=== PATIENT | male | born 1960 | race Caucasian/White ===

== ENCOUNTER → 2018-06-21 07:39 | Outpatient (CLI) | payer OTHER, SELFPAY ==
[2018-06-04 15:49] VITALS: BMI 27.6
--- NOTE | 2018-06-21 07:41 | ECHOD_ITS ---
Reason For Study: CAD/ASHD Procedure This was a 2D Doppler, Color Flow transthoracic echocardiogram. Exam performed in department. Left Ventricle Normal size and thickness. The estimated ejection fraction is 65 %. Normal diastology for age. No regional wall motion abnormalities noted. Right Ventricle Normal size and thickness. Normal systolic function. Atria The left atrium is mildly enlarged. Normal right atrium. Normal atrial septum. Mitral Valve The mitral valve is structurally normal. No prolapse or stenosis seen. Tricuspid Valve Normal tricuspid valve. Trivial tricuspid valve insufficiency. Right ventricular systolic pressure estimated to be 35 mmHg. Aortic Valve Trisinus/trileaflet aortic valve. Normal aortic valve. Pulmonic Valve Normal pulmonic valve. Trivial eccentric pulmonic valve insufficiency. Great Vessels Normal aortic root. Normal arch. Normal inferior vena cava. Inferior vena cava collapse with sniff. Pericardium/Pleural No pericardial effusion. MMode/2D Measurements & Calculations LVIDd: 5.2 cm IVSd: 0.95 cm Ao root diam: 3.6 cm LVIDs: 2.9 cm LVPWd: 1.0 cm RVDd: 3.6 cm FS: 44.4 % LAV(MOD-bp): 76.3 ml LA A4 area: 21.4 cm2 LA dimension(2D): 3.7 cm LAV(MOD-bp) Indexed: 37.8 ml/m2 LAV(MOD-sp2): 72.3 ml LAV(MOD-sp4): 72.4 ml RA A4 area: 15.6 cm2 Time Measurements MV dec time: 0.17 sec Doppler Measurements & Calculations MV E max mike: 69.3 cm/sec Lat Peak E' Mike: 12.4 cm/sec Med Peak E' Mike: 9.7 cm/sec MV A max mike: 45.8 cm/sec E/E' lat: 5.6 E/E' med: 7.2 MV E/A: 1.5 Ao V2 max: 128.3 cm/sec LV V1 max: 109.3 cm/sec PA V2 max: 82.7 cm/sec Ao max P.4 mmHg LV V1 max P.8 mmHg TR max mike: 269.5 cm/sec TR max P.0 mmHg Interpretation Summary The estimated ejection fraction is 65 %. Normal diastology for age. Trivial tricuspid valve insufficiency. Right ventricular systolic pressure estimated to be 35 mmHg. There is no comparison study available. Ordering Physician: Cresencio Amos Referring Physician: Ronald Montgomery Performed By: Sandra Almazan RDCS, RVT
== END ==
PROVIDERS: Family Provider Family Medicine; PCP Family Medicine; Referring Provider Internal Medicine Cardiovascular Disease; Visit Provider Internal Medicine Cardiovascular Disease
DX: E78.5 Hyperlipidemia, unspecified (principal); I25.10 Atherosclerotic heart disease of native coronary artery without angina pectoris; Z82.49 Family history of ischemic heart disease and other diseases of the circulatory system; R06.02 Shortness of breath
CPT/HCPCS: 93306

== ENCOUNTER → 2018-07-04 09:15 | Outpatient (CLI) | payer OTHER, SELFPAY ==
[2018-06-04 15:49] VITALS: BMI 27.6
--- NOTE | 2018-07-04 09:17 | STE_ITS ---
Reason For Study: FAMILY HX Stress Results Protocol: Stress Echocardiogram Maximum Predicted HR: 160 bpm Target HR: 136 bpm % Maximum Predicted HR: 86 % DurationHeart Rate Stage (mm:ss) (bpm) BP Comment BASELINE 56 150/80 BARRON PROTOCOL- STAGE 1 3:00 93 148/76NO SX BARRON PROTOCOL- STAGE 2 3:00 116 160/82NO SX, ST DEPRESSION, T WAVE INVERSION BARRON PROTOCOL- STAGE 3 3:00 137 164/84NO SX, ST DEPRESSION, T WAVE INVERSION Stress Duration: 9:00 mm:ss Maximum Stress HR: 137 bpm Baseline Echocardiogram Findings The estimated ejection fraction is 65 %. Stress Echo Wall motion Data Resting WM Intermediate WM Stress WM Resting Wall Motion Wall Motion Stress No regional wall motion No regional wall motion abnormalities noted. abnormalities noted. EKG Data The baseline ECG displays normal sinus rhythm. The patient exercised according to the regular Barron protocol for a total duration of 9:01. The maximum heart rate attained was 137 beats per minute. This was 85% of maximum predicted heart rate. The patient exercised into stage 4 of the Barron protocol. The stress ECG displays diffuse abnormal ST segments. Interpretation Summary The estimated ejection fraction is 65 %. Normal, adequate, treadmill echocardiogram. Negative for ischemia by echocardiographic criteria. Patient did develop [address] segment depression during exercise with a maximum of 2 mm at peak exercise. Rare PVCs and ventricular couplets noted. Appropriate blood pressure response to exercise. Average exercise capacity for age. No associated wall motion and normalities despite EKG changes. Final LVEF is 75%. Test terminated due to target rate achieved and EKG changes. No complications. Ordering Physician: Cresencio Amos Referring Physician: Cresencio Amos Performed By: Sandra Almazan, RDCS, RVT
== END ==
PROVIDERS: Family Provider Family Medicine; PCP Family Medicine; Referring Provider Internal Medicine Cardiovascular Disease; Visit Provider Internal Medicine Cardiovascular Disease
DX: R06.02 Shortness of breath (principal); E78.5 Hyperlipidemia, unspecified; I25.10 Atherosclerotic heart disease of native coronary artery without angina pectoris; Z82.49 Family history of ischemic heart disease and other diseases of the circulatory system
CPT/HCPCS: 93017; 93350

== ENCOUNTER → 2019-07-18 07:15 | Outpatient (CLI) | payer OTHER, SELFPAY ==
[2018-12-30 09:41] VITALS: BMI 26.9
[2019-07-18 08:08] LABS: AST(SGOT) 29 U/L (15-37); Alanine Aminotransfer ALT/SGPT 50 U/L (16-61); Albumin, Serum 3.8 g/dL (3.2-5.0); Alkaline Phosphatase 64 U/L (45-117); Bilirubin, Direct 0.16 mg/dL (0.00-0.30); Cholesterol 132 mg/dL (200); Globulin 3.6 g/dL (2.2-4.2); High Density Lipoprotein 41 mg/dL; Protein, Total 7.4 g/dL (6.4-8.2); Triglycerides 85 mg/dL; Very Low Density Lipoprotein 17 mg/dL (5-40)
== END ==
PROVIDERS: PCP Family Medicine; Referring Provider Internal Medicine Cardiovascular Disease; Visit Provider Internal Medicine Cardiovascular Disease
DX: E78.5 Hyperlipidemia, unspecified (principal); I25.10 Atherosclerotic heart disease of native coronary artery without angina pectoris
CPT/HCPCS: 36415; 80061; 80076

== ENCOUNTER → 2019-09-01 09:21 | Outpatient (CLI) | payer OTHER, SELFPAY ==
[2019-08-07 15:59] VITALS: BMI 27.1
--- NOTE | 2019-09-01 09:22 | STE_ITS ---
Reason For Study: CAD/ASHD Stress Results Protocol: Carlos Enrique Protocol Maximum Predicted HR: 159 bpm Target HR: 135 bpm % Maximum Predicted HR: 95 % DurationHeart Rate Stage (mm:ss) (bpm) BP BASELINE 57 150/72 STAGE 1 3:00 90 152/80 STAGE 2 3:00 112 160/72 STAGE 3 3:00 133 192/76 STAGE 4 1:00 151 / RECOVERY 77 142/70 Stress Duration: 10:00 mm:ss Maximum Stress HR: 151 bpm Baseline Echocardiogram Findings The estimated ejection fraction is 65 %. Stress Echo Wall motion Data Resting WM Intermediate WM Stress WM Resting Wall Motion Wall Motion Stress No regional wall motion No regional wall motion abnormalities noted. abnormalities noted. EKG Data The baseline ECG displays normal sinus rhythm. The patient exercised according to the regular Carlos Enrique protocol for a total duration of 10:01. The maximum heart rate attained was 151 beats per minute. This was 94% of maximum predicted heart rate. The patient exercised into stage 4 of the Carlos Enrique protocol. No clinical angina was noted. The stress ECG displays diffuse abnormal ST segments. Interpretation Summary The estimated ejection fraction is 65 %. Normal, adequate, treadmill echocardiogram. Negative for ischemia by echocardiographic criteria. Patient did develop downsloping ST segment depression during exercise with a maximum of 1 mm, which quickly resolved by 1 minute 22 seconds into recovery. No associated anginal symptoms or wall motion abnormalities noted. Final LVEF is 75%. Test terminated due to attainment of target heart rate and dyspnea. Appropriate blood pressure response to exercise. Average exercise capacity for age. Patient tolerated procedure well. No complications. Ordering Physician: Cresencio Amos Referring Physician: Cresencio Amos Performed By: Mackenzie Nava, RDCS, RVT
== END ==
PROVIDERS: PCP Family Medicine; Referring Provider Internal Medicine Cardiovascular Disease; Visit Provider Internal Medicine Cardiovascular Disease
DX: I25.10 Atherosclerotic heart disease of native coronary artery without angina pectoris (principal); E78.5 Hyperlipidemia, unspecified
CPT/HCPCS: 93017; 93350

== ENCOUNTER → 2022-03-06 | Outpatient (CLI) | payer OTHER, SELFPAY | END | disposition home or self-care (01) | PROVIDERS: Visit Provider Internal Medicine Cardiovascular Disease | DX: I49.49 Other premature depolarization (principal); Z82.49 Family history of ischemic heart disease and other diseases of the circulatory system; I25.10 Atherosclerotic heart disease of native coronary artery without angina pectoris; E78.5 Hyperlipidemia, unspecified | CPT/HCPCS: 93225; 93226 ==

== ENCOUNTER 2023-08-08 07:54 | Day surgery (SDC) | payer OTHER, SELFPAY ==
[2023-08-08] VITALS (10 sets, daily range): BP systolic 126–161; BP diastolic 63–109; PULSE 60–86; RESP 16–17; TEMP 36.2–36.8; O2SAT 98–100; BMI 29.0
--- NOTE | 2023-08-08 07:58 | EX.ED.DYSGE1 ---
HPI History of Present Illness Chief Complaint: Flank Pain Informant: patient Onset/Context/Timing Onset: Days (3) Context: Sudden Onset Timing: Waxes and wanes Quality: Aching Location: Left flank Worsened by: Nothing Relieved by: Nothing Narrative Narrative: Patient presents with left flank pain that became worse today. Patient was recently diagnosed with a ureteral calculus. Patient states his pain has been waxing and waning. Patient states he took a Percocet this morning with minimal relief. Patient states his pain is starting to improve since he arrived here in the emergency department. Patient denies any dysuria or hematuria. Patient denies any nausea or vomiting. Patient describes his pain as aching. Patient admits to some subjective chills but denies any fevers. [facility] Medical History (Updated 08/08/23 @ 08:[address] Andrea Myers DO) Atherosclerotic heart disease of [place] coronary artery without angina pectoris Hyperlipidemia Blood glucose elevated Shortness of breath Home Medications ?Medication ?Instructions ?Recorded ?Last Taken ?Type aspirin 81 mg tablet,delayed 81 mg PO DAILY 06/03/18 Unknown History release (Adult Aspirin Regimen) multivitamin 1 tab PO DAILY 06/03/18 Unknown History atorvastatin 80 mg tablet 80 mg PO QHS #90 tabs 03/29/23 Unknown Rx Allergy/AdvReac Type Severity Reaction Status Date / Time No Known Allergies Allergy Verified 05/14/23 13:52 Family History Mother , Age 68 from [place] CAD (coronary artery disease) Myocardial infarction Hyperlipidemia Father , age 83, cause unknown; hx CAD, cerebral aneurysm CAD (coronary artery disease) Cerebral aneurysm Daughter Inappropriate sinus tachycardia Grandfather , Age 80, CAD CAD (coronary artery disease) Surgical History History of colonoscopy (~2011) History of tonsillectomy (~1964) History of vasectomy (~1993) Social History Smoking Status: Never smoker alcohol intake: current alcohol intake frequency: a few times a month substance use type: does not use caffeine: Yes Type: coffee Number of servings: 1 ROS ROS ED Constitutional Constitutional ED: Reports chills; Denies fever(s) Eyes Eyes: Reports blurry vision; Denies change in vision ENT ENT ED: Denies rhinorrhea or sore throat Cardiovascular Cardiovascular: Denies chest pain or palpitations Respiratory/Chest Respiratory/Chest: Denies cough or dyspnea Gastrointestinal Gastrointestinal: Denies nausea or vomiting Genitourinary Genitourinary ED: Denies dysuria or hematuria Musculoskeletal Musculoskeletal: Denies back pain or neck pain Integumentary Denies abscess or rash Neurologic Neurologic: Reports headache(s); Denies weakness Allergic/Immunologic Allergic/Immunologic ED: Denies mouth swelling or urticaria EXAM Physical Exam Const Vital Signs: 08/08/23 07:54 Temperature 97.6 F L Temperature Source Temporal Pulse Rate 60 Respiratory Rate 17 Blood Pressure 161/72 H Blood Pressure Mean 101 Pulse Ox 99 Oxygen Delivery Method Room Air Positive well nourished and well developed General Appearance ED: well developed and NAD HEENT Reports moist mucous membranes Neck supple and no JVD Resp normal respiratory effort and clear to auscultation bilaterally Cardio regular rate and regular rhythm GI non-tender and non-distended Palpation: soft Back/Spine no CVA tenderness Neuro oriented x3, CN's II-XII intact bilaterally and no sensory deficits noted Sensorium / Orientation: alert Motor Exam: strength 5/5 throughout Psych mental status grossly normal MDM MDM MDM Narrative Medical decision making narrative: Patient has known left ureteral calculus. His symptoms are consistent with ureteral calculus. Basic preop labs were obtained. CBC will be obtained to assess for leukocytosis and anemia. Basic metabolic profile will be obtained to assess for electrolyte abnormality and renal function. EKG will be obtained to assess for cardiac dysrhythmia and cardiac ischemia. Lab Data Attestation: I reviewed the patient's lab results. Lab results narrative: CBC was reviewed and was within normal limits. Basic metabolic profile was reviewed. Creatinine was mildly elevated at 1.4. The remainder was within normal limits. Labs: Laboratory Results - last 24 hr 08/08/23 08:26 WBC 9.1 RBC 4.18 L Hgb 13.1 Hct 38.2 L MCV 91.4 MCH 31.3 MCHC 34.3 RDW Std Deviation 40.8 RDW Coeff of Diomedes 12.2 Plt Count 172 MPV 11.6 Immature Gran % (Auto) 0.400 Neut % (Auto) 83.1 H Lymph % (Auto) 11.1 L [place] % (Auto) 5.1 Eos % (Auto) 0.0 Baso % (Auto) 0.3 Absolute Neuts (auto) 7.6 Absolute Lymphs (auto) 1.01 Nucleated RBC % 0 Sodium 137 Potassium 4.1 Chloride 106 Carbon Dioxide 27.0 Anion Gap 4 L BUN 14 Creatinine 1.40 H Est GFR (MDRD) Af Amer 65 Est GFR (MDRD) Non-Af 54 L BUN/Creatinine Ratio 10.0 Glucose 122 H Calcium 9.4 EKG Initial EKG: Attestation: I personally reviewed and interpreted this EKG as follows: Interpretation: Sinus Bradycardia (55) and Non-Specific ST Changes Comments: EKG was obtained. On my independent interpretation, it showed a sinus bradycardia with a rate of 55. MS interval, QRS interval, and QTc intervals were all normal. [place] was normal. There are nonspecific ST-T wave changes. Prior EKG tracings: available for review Prior: Unchanged (06/04/2018) Treatment and Re-Evaluation :: Patient was given a dose of Dilaudid and Zofran. Case was discussed with Dr. Lawrence. He will take patient to surgery for stent placement today. Discharge Plan Dx/Rx/DC Orders Clinical Impression: Calculus of left ureter, Acute left flank pain Disposition Disposition: Acute Care Hospital [facility]
--- NOTE | 2023-08-08 08:17 | EKG12_ITS ---
Test Reason : Blood Pressure : / mmHG Vent. Rate : 055 BPM Atrial Rate : 055 BPM P-R Int : 126 ms QRS Dur : 092 ms QT Int : 422 ms P-R-T Axes : 023 037 004 degrees QTc Int : 403 ms Sinus bradycardia Nonspecific ST and T wave abnormality Abnormal ECG Confirmed by Quinten Villanueva ([id number]), news copy editor AAKASH SANTANA ([id number]) on 08/09/2023 11:17:16 AM Referred By: Confirmed By:Quinten Villauneva
[2023-08-08] MEDS: HYDROmorphone 1 MG/ML Syringe 0.5 MG IV (08:21)
[2023-08-08] MEDS: Ondansetron 4 MG/2 ML Vial IV (08:21)
--- NOTE | 2023-08-08 08:23 | ED.RN ---
NO OLD EKGS
[2023-08-08 08:30] LABS: Absolute Lymphocyte Count 1.01 X10^3/uL (0.83-4.51); Absolute Neutrophil Count 7.6 X10^3/uL (2.0-7.7); Basophil# 0.03 X10^3/uL; Basophil% 0.3 % (0-1); Hematocrit 38.2 % (40-54); Hemoglobin 13.1 g/dL (13.0-16.5); Lymphocyte # 1.01 X10^3/ul (0.83-4.51); Lymphocyte % 11.1 % (19-41); Mean Corp Hgb Conc 34.3 g/dL (32-36); Mean Corpuscular Hgb 31.3 pg (27.0-32.0); Mean Corpuscular Volume 91.4 fL (80-94); Mean Platelet Vol. 11.6 fl (6.2-12.0); Monocyte# 0.47 X10^3/uL; Monocyte% 5.1 % (0-10); NRBC Flagged by Analyzer 0 % (0-5); Neutrophil # 7.59 X10^3/uL (2.7-7.7); Neutrophil % 83.1 % (47-70); Platelet Count 172 K/mm3 (150-450); RBC Distribution Width CV 12.2 % (11.6-14.6); RBC Distribution Width SD 40.8 fl (35.1-43.9); Red Blood Count 4.18 M/mm3 (4.6-6.2); White Blood Count 9.1 K/mm3 (4.4-11.0)
[2023-08-08 08:42] LABS: Anion Gap 4 (5-15); BUN 14 mg/dL (7-18); Calcium,Total 9.4 mg/dL (8.5-10.1); Chloride 106 mmol/L (98-107); EST Glomerular Filtration Rate 54 mL/min (>60); Est Glom Filt Rate - Afr Amer 65 mL/min (>60); Glucose 122 mg/dL (74-106); Potassium 4.1 mmol/L (3.5-5.1); Sodium Level 137 mmol/L (136-145)
[2023-08-08] MEDS: Lactated Ringers 1,000 ML 15 ML IV (09:24)
--- NOTE | 2023-08-08 09:54 | PCM.PRE.AN2 ---
ASA Classification* ASA Classification ASA Classification: 2 Assessment & Plan Anesthesia* Anesthesia Assessment Anesthesia Assessment: Discussed sedation and/or anesthesia options, risks, benefits, and alternatives with patient/parents/legal guardian/POA. Questions invited. The patient/parents/legal guardian/POA seems to understand and agrees to proceed with anesthesia plan. Reviewed the physical assessment, medical history, allergy history and patient home medications list prior to surgery/procedure/anesthetic and documented any changes. Performed airway and anesthesia risk assessments. Procedural Plan Procedural Plan:: Proceed w/ Anesthesia plan Anesthesia Type Anesthesia Type: MAC History Source History Obtained from:: Patient and Chart Anesthesia Focused Assessment* Temperature: 97.3 F Pulse Rate: 82 Blood Pressure: 134/69 Respiratory Rate: 16 Pulse Ox: 98 Oxygen Delivery Method: Room Air Airway Assessment Mouth opens: >3 cm Mallampati Score: IV Teeth Condition: Caps/Crowns ([place] bottom right molar. It is tight) Neck Range of motion (ROM): Full ROM Pertinent Findings EKG Pertinent Findings:: August 08, 2023. Sinus bradycardia [address] and T wave abnormalities. Focused Labs Anesthesia Preop lab: CBC WBC 9.1 K/mm3 (4.4-11.0) 08/08/23 08:26 RBC 4.18 M/mm3 (4.6-6.2) L 08/08/23 08:26 Hgb 13.1 g/dL (13.0-16.5) 08/08/23 08:26 Hct 38.2 % (40-54) L 08/08/23 08:26 Plt Count 172 K/mm3 (150-450) 08/08/23 08:26 CHEMISTRY Potassium 4.1 mmol/L (3.5-5.1) 08/08/23 08:26 Sodium 137 mmol/L (136-145) 08/08/23 08:26 BUN 14 mg/dL (7-18) 08/08/23 08:26 Creatinine 1.40 mg/dL (0.70-1.30) H 08/08/23 08:26 Glucose 122 mg/dL (74-106) H 08/08/23 08:26 COAG Pre-Assessment Diagnosis/Proposed Procedure Planned Operative Procedure(s): Cystoscopy with stent placement. 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 When Was Last Pacemaker Check QUESTION #4 FULL TEXT: You/Your Family Experience fever (hyperthermia) with Anesthesia Last Oral Intake Last Oral intake: Last Oral Intake NPO since 07:00 08/08/23 08:51 Meds taken in AM with sips of No 08/08/23 08:51 water? Meds patient instructed to take am of surgery Any additional information?: Yes Meds taken in AM with sips of water?: Yes Meds patient instructed to take am of surgery: Patient took Aleve at 7 AM. PONV PONV - machining department supervisor: PONV - machining department supervisor Female HX of Motion Sickness HX of N/V After Surgery Non-Smoker Duration of Surgery greater than 60 minutes Number of Risk Factors PONV Score Height & Weight Height & Weight: Anesthesia: Height & Weight Height 5 ft 10 in 08/08/23 08:51 Weight: 91.8 kg 08/08/23 08:51 Body Mass Index (BMI) 29.0 08/08/23 08:51 Respiratory Assessment Respiratory Assessment - machining department supervisor: Respiratory Tract Infection Hx - machining department supervisor Hx Respiratory Tract Infection No 08/08/23 08:51 STOP Sleep Apnea STOP Sleep Apnea - machining department supervisor: STOP Sleep Apnea - machining department supervisor Hx Hypertension No 08/08/23 08:51 Hx Sleep Apnea No 08/08/23 08:51 CPAP BIPAP Do you snore loudly (louder Yes 08/08/23 08:51 than talking or can be heard Do you often feel tired/ No 08/08/23 08:51 fatigued/ sleepy during daytime? Has anyone observed you stop No 08/08/23 08:51 breathing during sleep? STOP Results Negative 08/08/23 08:51 QUESTION #5 FULL TEXT : Do you snore loudly (louder than talking or can be heard through closed doors)? 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 Specify any problems Hx of Preganancy in last 3 Months Nurse Filling Out Transfusion & Questions: Date: Time: Patient unable to answer at this time (ie. confused, unrespo /Reproduction History /Reproductive History - machining department supervisor: /Reproductive Hx- machining department supervisor Hx Now No 08/08/23 08:51 Gestational Age (in weeks): EDC: Hx Hx Para Hx Section SAB No 08/08/23 08:51 Active Medications Active Medications: Current Medications Generic Name Dose Route Start Last Admin Trade Name Freq PRN Reason Stop Dose Admin Lactated Ringer's 1,000 mls @ 15 mls/hr 08/08/23 09:30 08/08/23 09:24 IV 15 mls/hr .Q48H ALEX Administration PFSH Medical History (Updated 08/08/23 @ 08:[address] Andrea Myers, DO) Atherosclerotic heart disease of [place] coronary artery without angina pectoris Hyperlipidemia Blood glucose elevated Shortness of breath Home Medications ?Medication ?Instructions ?Recorded ?Last Taken ?Type aspirin 81 mg tablet,delayed 81 mg PO DAILY 06/03/18 Unknown History release (Adult Aspirin Regimen) multivitamin 1 tab PO DAILY 06/03/18 Unknown History atorvastatin 80 mg tablet 80 mg PO QHS #90 tabs 03/29/23 Unknown Rx Allergy/AdvReac Type Severity Reaction Status Date / Time No Known Allergies Allergy Verified 05/14/23 13:52 Family History Mother , Age 68 from [place] CAD (coronary artery disease) Myocardial infarction Hyperlipidemia Father , age 83, cause unknown; hx CAD, cerebral aneurysm CAD (coronary artery disease) Cerebral aneurysm Daughter Inappropriate sinus tachycardia Grandfather , Age 80, CAD CAD (coronary artery disease) Surgical History History of colonoscopy (~2011) History of tonsillectomy (~1964) History of vasectomy (~1993) Social History Smoking Status: Never smoker alcohol intake: current alcohol intake frequency: a few times a month substance use type: does not use caffeine: Yes Type: coffee Number of servings: 1 Review of Systems (Anesthesia) ROS Narrative System reviewed and no additional complaints, except as documented.
--- NOTE | 2023-08-08 10:27 | HP.PCM_ITS ---
[facility] - General General Date of Service: 08/08/23 Chief Complaint: Left proximal ureteral calculi HPI Narrative NAI TANNER, is a 63 M who presents severe pain with a stone in the left proximal ureter Set him up today for stent placement possible ureteroscopy laser lithotripsy. [facility] Medical History (Updated 08/08/23 @ 08:[address] Andrea Myers DO) Atherosclerotic heart disease of [place] coronary artery without angina pectoris Hyperlipidemia Blood glucose elevated Shortness of breath Home Medications ?Medication ?Instructions ?Recorded ?Last Taken ?Type aspirin 81 mg tablet,delayed 81 mg PO DAILY 06/03/18 Unknown History release (Adult Aspirin Regimen) multivitamin 1 tab PO DAILY 06/03/18 Unknown History atorvastatin 80 mg tablet 80 mg PO QHS #90 tabs 03/29/23 Unknown Rx Allergy/AdvReac Type Severity Reaction Status Date / Time No Known Allergies Allergy Verified 05/14/23 13:52 Family History Mother , Age 68 from [place] CAD (coronary artery disease) Myocardial infarction Hyperlipidemia Father , age 83, cause unknown; hx CAD, cerebral aneurysm CAD (coronary artery disease) Cerebral aneurysm Daughter Inappropriate sinus tachycardia Grandfather , Age 80, CAD CAD (coronary artery disease) Surgical History History of colonoscopy (~2011) History of tonsillectomy (~1964) History of vasectomy (~1993) Social History Smoking Status: Never smoker alcohol intake: current alcohol intake frequency: a few times a month substance use type: does not use caffeine: Yes Type: coffee Number of servings: 1 Vital Signs Vital Signs Vital Signs: 08/08/23 07:54 08/08/23 08:51 08/08/23 09:17 Temperature 97.6 F L 97.4 F L 97.3 F L Temperature Source Temporal Oral Pulse Rate 60 86 82 Respiratory Rate 17 16 16 Blood Pressure 161/72 H 137/69 H 134/69 H Blood Pressure Mean 101 91 90 Blood Pressure Source Monitor Blood Pressure Position Supine Blood Pressure Location Left Arm Pulse Ox 99 98 98 Oxygen Delivery Method Room Air Room Air 08/08/23 10:04 Temperature 97.3 F L Temperature Source Pulse Rate 82 Respiratory Rate 16 Blood Pressure 134/69 H Blood Pressure Mean Blood Pressure Source Blood Pressure Position Blood Pressure Location Pulse Ox 98 Oxygen Delivery Method Room Air Weight Weight: 91.8 kg Body Mass Index (BMI) 29.0 Results Lab / Micro Data 08/08/23 08:26 08/08/23 08:26 Labs: Laboratory Results - last 24 hr 08/08/23 08:26: WBC 9.1, RBC 4.18 L, Hgb 13.1, Hct 38.2 L, MCV 91.4, MCH 31.3, MCHC 34.3, RDW Std Deviation 40.8, RDW Coeff of Diomedes 12.2, Plt Count 172, MPV 11.6, Immature Gran % (Auto) 0.400, Neut % (Auto) 83.1 H, Lymph % (Auto) 11.1 L, [place] % (Auto) 5.1, Eos % (Auto) 0.0, Baso % (Auto) 0.3, Absolute Neuts (auto) 7.6, Absolute Lymphs (auto) 1.01, Nucleated RBC % 0, Sodium 137, Potassium 4.1, Chloride 106, Carbon Dioxide 27.0, Anion Gap 4 L, BUN 14, Creatinine 1.40 H, Est GFR (MDRD) Af Amer 65, Est GFR (MDRD) Non-Af 54 L, BUN/Creatinine Ratio 10.0, G lucose 122 H, Calcium 9.4
[2023-08-08] MEDS: Cefazolin 2 GM in 0.9% Normal Saline (100mL Bag) 100 ML IV (11:38)
--- NOTE | 2023-08-08 12:12 | DCINST_ITS ---
Discharge Instructions Diet Discharge Diet: No restrictions Activity Discharge Activity: Return to Normal Activity and May Not Drive (while taking narcotic pain medications.) Dressing / Incision Call your doctor if you observe: Fever of 101 or Higher Follow Up Care Please Follow Up With: Jesus Lawrence MD When: Call [phone] for an appointment Test Results: Test results from this visit will be discussed in further detail at your follow- up appointment, if applicable. Discharge Plan Admission Primary Reason for Your Visit: laser stone and stent Attending Provider: Jesus Lawrence Primary Care Provider: Freedom Grady Instructions Print Language: Irish Discharge Orders/Prescriptions Prescriptions: New ciprofloxacin HCl [Cipro] 500 mg tablet 500 mg PO BID Qty: 10 0RF Continued aspirin [Adult Aspirin Regimen] 81 mg tablet,delayed release (DR/EC) 81 mg PO DAILY multivitamin tablet 1 tab PO DAILY atorvastatin 80 mg tablet 80 mg PO QHS Qty: 90 3RF Referrals / Follow Up: Jesus Lawrence MD [Med Staff - Active Staff] - Freedom Grady DO [Primary Care Provider] - Disposition Disposition (needs filled in before D/C Order can be placed): Home, Self Care
--- NOTE | 2023-08-08 12:12 | PCM.OPRPT ---
Report of Operation Date of Procedure: 08/08/23 Pre-Operative Diagnosis: Left obstructing ureteral calculi Post-Operative Diagnosis: The same Surgery/Procedure Performed:: Cystoscopy, left ureteroscopy laser lithotripsy of stone, left retrograde milligram, left stent placement Description of Surgical Findings:: Patient presented today to the hospital with severe pain in the left side Janel taken back to surgery today laser the stone causing obstruction at the left UPJ.. Patient is taken back to the operating room after smooth induction of anesthesia he was placed in dorsolithotomy position. The penis and testicles were prepped and draped in usual sterile fashion went in the bladder with a 21 Far[place] rigid cystourethroscope he did have a large obstructive prostate large median lobe I then cannulated the left ureteral orifice with a Glidewire and a Pollick catheter performed retrograde pyelogram and identified the stone up in the left UPJ area in the renal pelvis I then put the wire up into the kidney over the wire went over the flexible ureteroscope was able to get in the ureter quite easily worked my way all the way up the ureter and then got into the renal pelvis pulled out the wire and inspected and found the stone as an 8 mm stone fairly hard stone in the renal pelvis using thulium laser and performed laser lithotripsy on the stone broke up completely into tiny little dust pieces I then put a wire up to the ureteroscope worked my way down the ureter no stones along the course ureter was seen I then put a stent up on the left side drained the bladder and left the string on the stent but cut the string short to prevent early extraction patient anesthetic was reversed and I will see him next week for cystoscopy stent removal in the office Surgeon: Jesus Lawrence Type of Anesthesia: General Drains: stent left side Estimated Blood Loss (mL): 0 Admit VTE Documentation VTE Present on Admission: No VTE Mechan Device Prophylaxis: SCD's VTE Pharm Prophylaxis ordered?: No
--- NOTE | 2023-08-08 12:25 | PCM.POST.ANE ---
Anesthesia: Postop Eval I Current Vital Signs Temperature: 97.8 F Pulse Rate: 82 Blood Pressure: 126/63 Respiratory Rate: 16 Pulse Ox: 100 Oxygen Delivery Method: Room Air Assessment Airway patent: Yes Spontaneous unlabored respirations: Yes Mental status: Awake and Calm nausea: No Vomiting: No Anesthesia Complication: No Fluid Hydration Crystalloid volume administer (ml): 600 Total IV fluid infused: 600 Progress Note Anesthesia document: Postop Eval 1 completed: Yes
--- NOTE | 2023-08-08 15:40 | POSTOPAN2_ITS ---
Anesthesia Postop Eval I Sum Postop Eval Completion status Anesthesia document: Postop Eval 1 completed: Yes Anesthesia Postop Eval I Summary Anesthesia Postop Eval I Summary: Anesthesia Postop Eval I: Assessment Summary Airway patent Yes 08/08/23 12:25 [email or web address] Spontaneous unlabored Yes 08/08/23 12:25 FIRMWARE ARCHITECT.[email or web address] respirations Mental status Awake,Calm 08/08/23 12:25 FIRMWARE [email or web address] nausea No 08/08/23 12:25 FIRMWARE [email or web address].[email or web address] Vomiting No 08/08/23 12:25 FIRMWARE [email or web address].[email or web address] Anesthesia Postop Eval I: Fluid Summary Crystalloid volume administer 600 08/08/23 12:25 [email or web address] (ml) Colloids volume administered ( ml) Blood Product volume administered (ml) Total IV fluid infused 600 08/08/23 12:25 FIRMWARE [email or web address].[email or web address] Anesthesia Postop Eval I: Summary Notes Anesthesia Complication No 08/08/23 12:25 FIRMWARE ARCHITECT.[email or web address] Anesthesia Complication Comment: Post-operative progress note Anesthesia: Postop Eval II Evaluation Mental status: Awake and Calm Pain Level: 1 nausea: No Vomiting: No Complications Anesthesia Complication: No
--- NOTE | 2023-08-08 15:40 | PCM.POSTANE2 ---
Anesthesia Postop Eval I Sum Postop Eval Completion status Anesthesia document: Postop Eval 1 completed: Yes Anesthesia Postop Eval I Summary Anesthesia Postop Eval I Summary: Anesthesia Postop Eval I: Assessment Summary Airway patent Yes 08/08/23 12:25 [email or web address] Spontaneous unlabored Yes 08/08/23 12:25 SPINNER OPERATOR.[email or web address] respirations Mental status Awake,Calm 08/08/23 12:25 SPINNER [email or web address].[email or web address] nausea No 08/08/23 12:25 SPINNER OPERATOR.[email or web address] Vomiting No 08/08/23 12:25 SPINNER OPERATOR.[email or web address] Anesthesia Postop Eval I: Fluid Summary Crystalloid volume administer 600 08/08/23 12:25 SPINNER [email or web address] (ml) Colloids volume administered ( ml) Blood Product volume administered (ml) Total IV fluid infused 600 08/08/23 12:25 SPINNER OPERATOR.[email or web address] Anesthesia Postop Eval I: Summary Notes Anesthesia Complication No 08/08/23 12:25 SPINNER OPERATOR.CARMELINA Anesthesia Complication Comment: Post-operative progress note Anesthesia: Postop Eval II Evaluation Mental status: Awake and Calm Pain Level: 1 nausea: No Vomiting: No Complications Anesthesia Complication: No
== END 2023-08-08 13:34 | disposition home or self-care (01) ==
LOC: ED 08:52 → SDC 08:55 → AC 08:55
PROVIDERS: Emergency Provider Emergency Medicine; Visit Provider Urology
PROC: (CPT 52332; principal; 2023-08-08 14:30)
DX: N20.1 Calculus of ureter (principal); I25.10 Atherosclerotic heart disease of native coronary artery without angina pectoris
CPT/HCPCS: 52356; 00873; 76000; 80048; 85025; 93005; 99284; J7120; A4216; C1769; C2617; J2405

== ENCOUNTER → 2024-02-25 | Outpatient (CLI) | payer OTHER, SELFPAY ==
--- NOTE | 2024-02-25 16:00 | CT_ITS ---
STUDY: CT BRAIN WITH AND WITHOUT CONTRAST REASON FOR EXAM: Male, 64 years old. Sector or arcuate defects, right eye RADIATION DOSAGE (If Supplied By Facility): CTDIvol = ( 44.99 ) mGy, DLP = ( 1580.97 ) mGycm TECHNIQUE: Transaxial CT imaging of the brain was performed pre and post contrast administration. The examination was performed with intravenous administration of IV 50mL Isovue-370. Individualized dose optimization techniques were used for this CT. COMPARISON: None. FINDINGS: Normal soft tissue structures. Normal calvarium. Normal size ventricles and extra-axial spaces for the patient''s age. Normal white matter tracts of the cerebral hemispheres. Normal basal ganglia and thalami. Normal brainstem. Normal cerebellum. There is no intracranial hemorrhage. There are no findings of an acute ischemic infarction. Normal visualized paranasal sinuses. Nasal septal deviation to the right side of midline. Mild degree of mucosal thickening of the right ethmoid sinus. CT/Brain/Head W/WO Contrast IMPRESSION: Normal unenhanced and enhanced CT scan of the brain. Mild degree of mucosal thickening along the posterior aspect of the right ethmoid sinus. Electronically Signed: Carlos Eduardo Andino MD at 13:14 EST ,
== END | disposition home or self-care (01) ==
LOC: CT 15:35
PROVIDERS: Referring Provider Ophthalmology; Visit Provider Ophthalmology
DX: H53.431 Sector or arcuate defects, right eye (principal)

== ENCOUNTER 2024-03-04 16:03 | Observation (INO) | payer OTHER, SELFPAY ==
[2024-03-04 16:03] VITALS: BP 156/87; PULSE 61; RESP 16; TEMP 36.6; O2SAT 100; BMI 26.8
--- NOTE | 2024-03-04 16:35 | EDS_ITS ---
HPI History of Present Illness Chief Complaint: Flank Pain Informant: patient and spouse/S.O. Narrative Narrative: 64-year-old male presenting to the emergency room with kidney stone pain. Patient states that he has a history of ureterolithiasis and follows with Dr. Lawrence. He had pain this morning that waxed and waned and he came to the hospital as a abdominal x-ray was ordered by his urologist. He was demonstrating a 9 mm proximal ureteral stone. Patient states that he had return of his symptoms this afternoon and came to the emergency department. Dr. Lawrence did call us is able to do surgery tomorrow. Patient denies any fevers. [facility] Medical History Atherosclerotic heart disease of [place] coronary artery without angina pectoris Hyperlipidemia Blood glucose elevated Shortness of breath Home Medications ?Medication ?Instructions ?Recorded ?Last Taken ?Type multivitamin 1 tab PO DAILY 06/03/18 Unknown History atorvastatin 80 mg tablet 80 mg PO QHS #90 tabs 03/29/23 Unknown Rx latanoprost 0.005 % eye drops 1 drp ophthalmic (eye) QHS 03/04/24 Unknown History Allergy/AdvReac Type Severity Reaction Status Date / Time No Known Allergies Allergy Verified 03/04/24 16:04 Family History Mother , Age 68 from [place] CAD (coronary artery disease) Myocardial infarction Hyperlipidemia Father , age 83, cause unknown; hx CAD, cerebral aneurysm CAD (coronary artery disease) Cerebral aneurysm Daughter Inappropriate sinus tachycardia Grandfather , Age 80, CAD CAD (coronary artery disease) Surgical History History of colonoscopy (~2011) History of tonsillectomy (~1964) History of vasectomy (~1993) Social History Smoking Status: Never smoker alcohol intake: current alcohol intake frequency: a few times a month substance use type: does not use caffeine: Yes Type: coffee Number of servings: 1 ROS ROS ED Constitutional Constitutional ED: Denies chills, fever(s) or weight loss Eyes Eyes: Denies change in vision or diplopia ENT ENT ED: Denies ear pain, rhinorrhea or sore throat Cardiovascular Cardiovascular: Denies chest pain, orthopnea, palpitations or racing heartbeat Respiratory/Chest Respiratory/Chest: Denies cough, dyspnea or orthopnea Gastrointestinal Gastrointestinal: Reports nausea; Denies abdominal pain, diarrhea or vomiting Genitourinary Genitourinary ED: Denies dysuria, hematuria or urinary frequency Musculoskeletal Musculoskeletal: Reports back pain; Denies arthralgias or myalgias Integumentary Denies abscess or rash Neurologic Neurologic: Denies headache(s) or weakness Psychiatric Psychiatric: Denies anxiety, depression, suicidal ideation or suicidal thoughts Endocrine Endocrinology: Denies polydipsia, polyphagia or polyuria Allergic/Immunologic Allergic/Immunologic ED: Denies mouth swelling, tongue swelling or urticaria EXAM Physical Exam Const Vital Signs: 03/04/24 16:03 03/04/24 17:07 03/04/24 18:44 Temperature 97.8 F 98 F 97.4 F L Temperature Source Oral Oral Oral Pulse Rate 61 71 61 Respiratory Rate 16 16 15 Blood Pressure 156/87 H 148/81 H 159/85 H Blood Pressure Mean 110 103 109 Pulse Ox 100 98 99 Oxygen Delivery Method Room Air Room Air Room Air 03/04/24 19:00 Temperature 98.2 F Temperature Source Oral Pulse Rate 63 Respiratory Rate 16 Blood Pressure 127/64 H Blood Pressure Mean 85 Pulse Ox 98 Oxygen Delivery Method Room Air Positive well nourished and well developed General Appearance ED: well developed HEENT Reports normocephalic, head/scalp atraumatic and moist mucous membranes Eyes PERRL and EOMs intact bilaterally Neck no lymphadenopathy, supple and no JVD Resp normal respiratory effort and clear to auscultation bilaterally Cardio regular rate, regular rhythm and no murmurs GI normal to inspection, nondistended, normoactive bowel sounds and non-tender Palpation: soft Back/Spine no CVA tenderness and normal ROM Extremity normal to inspection General Extremety ED: Negative for edema General Extremity: Negative for edema Neuro oriented x3 and CN's II-XII intact bilaterally Sensorium / Orientation: alert Motor Exam: strength 5/5 throughout Psych mental status grossly normal Mood & Affect: Negative for depressed or tearful Skin no rashes or lesions noted and no wounds MDM MDM MDM Narrative Medical decision making narrative: Differential diagnosis includes but not limited to ureterolithiasis STEPHEN UTI pyelonephritis Patient's white count 9.6 hemoglobin 13.9 plate count of 184. Creatinine is normal 1.2 urinalysis with no overt infection 5-10 red cells. Patient received morphine Toradol. His pain was not controlled he received a dose of Dilaudid. I spoke with Dr. Lawrence and the plan is admission into hospital for management operatively tomorrow History & Record Review Discussion w/independent historian: Patient and Significant other Lab Data Attestation: I reviewed the patient's lab results. Labs: Laboratory Results - last 24 hr 03/04/24 03/04/24 16:25 17:30 WBC 9.6 RBC 4.18 L Hgb 13.9 Hct 37.7 L MCV 90.2 MCH 33.3 H MCHC 36.9 H RDW Std Deviation 40.4 RDW Coeff of Diomedes 12.3 Plt Count 184 MPV 10.8 Immature Gran % (Auto) 0.300 Neut % (Auto) 86.0 H Lymph % (Auto) 7.5 L [place] % (Auto) 5.9 Eos % (Auto) 0.1 Baso % (Auto) 0.2 Absolute Neuts (auto) 8.3 H Absolute Lymphs (auto) 0.72 L Nucleated RBC % 0 Sodium 140 Potassium 3.2 L Chloride 107 Carbon Dioxide 27.0 Anion Gap 7 BUN 14 Creatinine 1.20 Estim Creat Clear Calc 62.52 Est GFR (MDRD) Af Amer 78 Est GFR (MDRD) Non-Af 64 BUN/Creatinine Ratio 11.7 Glucose 132 H Calcium 9.2 Urine Color Yellow Urine Clarity Clear Urine pH 7.0 Ur Specific [place] 1.010 Urine Protein 15 H Urine Glucose (UA) Normal Urine Ketones Negative Urine Occult Blood 250 H Urine Nitrite Negative Urine Bilirubin Negative Urine Urobilinogen Normal Ur Leukocyte Esterase Negative Urine RBC 5-10 SEEN Urine WBC 0 SEEN Ur Squamous Epith Cells 0 SEEN Urine Bacteria 0 SEEN Urine Mucus 0 SEEN Management Discussion w/another healthcare provider: Bulldozer Press Operator (Dr Lawrence) Discharge Plan Triage Chief Complaint: Flank Pain ED Provider: Cresencio Núñez Dx/Rx/DC Orders Prescriptions: No Action multivitamin tablet 1 tab PO DAILY latanoprost 0.005 % drops 1 drp ophthalmic (eye) QHS atorvastatin 80 mg tablet 80 mg PO QHS Qty: 90 3RF Primary Care Provider: Freedom Grady Referrals: Freedom Grady DO [Primary Care Provider] - Print Language: French
[2024-03-04] MEDS: Morphine 4 MG/ML Syringe IV (16:42)
[2024-03-04] MEDS: Ketorolac 30 MG/ML Syringe 15 MG IV (16:42)
[2024-03-04 16:44] LABS: Absolute Lymphocyte Count 0.72 X10^3/uL (0.83-4.51); Absolute Neutrophil Count 8.3 X10^3/uL (2.0-7.7); Basophil# 0.02 X10^3/uL; Basophil% 0.2 % (0-1); Eosinophil# 0.01 X10^3/uL; Eosinophils% 0.1 % (0-5); Hematocrit 37.7 % (40-54); Hemoglobin 13.9 g/dL (13.0-16.5); Lymphocyte # 0.72 X10^3/ul (0.83-4.51); Lymphocyte % 7.5 % (19-41); Mean Corp Hgb Conc 36.9 g/dL (32-36); Mean Corpuscular Hgb 33.3 pg (27.0-32.0); Mean Corpuscular Volume 90.2 fL (80-94); Mean Platelet Vol. 10.8 fl (6.2-12.0); Monocyte# 0.57 X10^3/uL; Monocyte% 5.9 % (0-10); NRBC Flagged by Analyzer 0 % (0-5); Neutrophil # 8.26 X10^3/uL (2.7-7.7); Platelet Count 184 K/mm3 (150-450); RBC Distribution Width CV 12.3 % (11.6-14.6); RBC Distribution Width SD 40.4 fl (35.1-43.9); Red Blood Count 4.18 M/mm3 (4.6-6.2); White Blood Count 9.6 K/mm3 (4.4-11.0)
[2024-03-04 16:57] LABS: Anion Gap 7 (5-15); BUN 14 mg/dL (7-18); BUN/Creat Ratio 11.7 RATIO (10-20); Calcium,Total 9.2 mg/dL (8.5-10.1); Chloride 107 mmol/L (98-107); EST Glomerular Filtration Rate 64 mL/min (>60); Est Glom Filt Rate - Afr Amer 78 mL/min (>60); Estimated Creatinine Clearance 62.52 ml/min; Glucose 132 mg/dL (74-106); Potassium 3.2 mmol/L (3.5-5.1); Sodium Level 140 mmol/L (136-145)
[2024-03-04 17:07] VITALS: BP 148/81; PULSE 71; RESP 16; TEMP 36.6; O2SAT 98
[2024-03-04 17:36] LABS: Bacteria 0 SEEN /hpf (None Seen); Mucous, Urine 0 SEEN /hpf (<or=2+); Squamous Epithelial Cells - UA 0 SEEN /hpf (0-5); White Blood Cells 0 SEEN /hpf (0-5)
[2024-03-04 17:51] LABS: Color, Urine Yellow (Yellow); Glucose, Dipstick Normal (Normal); Ketone-Dipstick Negative (Negative); Leukocyte Esterase-Dipstick Negative /ul (Negative); Nitrite-Dipstick Negative (Negative); Occult Blood-Urine 250 /ul (Negative); Protein-Dipstick 15 mg/dl (Negative); Urine Bilirubin Dipstick Negative (Negative); Urine Clarity Clear (Clear); Urine Urobilinogen Normal (Normal)
[2024-03-04] MEDS: HYDROmorphone 1 MG/ML Syringe IV (18:06)
[2024-03-04 18:16] LABS: Red Blood Cells-Urine 5-10 SEEN /hpf (0-5)
[2024-03-04 18:44] VITALS: BP 159/85; PULSE 61; RESP 15; TEMP 36.3; O2SAT 99
[2024-03-04 19:00] VITALS: BP 127/64; PULSE 63; RESP 16; TEMP 36.8; O2SAT 98
[2024-03-04 19:56] VITALS: BP 135/73; PULSE 72; RESP 16; TEMP 37.1; O2SAT 98
--- NOTE | 2024-03-04 20:16 | HP.PCM_ITS ---
HPI - General General Date of Service: 03/04/24 Chief Complaint: severe pain from right ureteral calculi HPI Narrative NAI TANNER, is a 64 M who presents to ER, earlier today was in my office new diagnosis of 9mm right ureteral calculi, he was set up for outpaitent surgery but presented to ER w intractable pain, after multiple rounds of medications the ER doctor has asked me to admit the patient for pain control. plan for surgery tomorrow. [facility] Medical History Atherosclerotic heart disease of [place] coronary artery without angina pectoris Hyperlipidemia Blood glucose elevated Shortness of breath Home Medications ?Medication ?Instructions ?Recorded ?Last Taken ?Type multivitamin 1 tab PO DAILY 06/03/18 Unknown History atorvastatin 80 mg tablet 80 mg PO QHS #90 tabs 03/29/23 Unknown Rx latanoprost 0.005 % eye drops 1 drp ophthalmic (eye) QHS 03/04/24 Unknown History Allergy/AdvReac Type Severity Reaction Status Date / Time No Known Allergies Allergy Verified 03/04/24 16:04 Family History Mother , Age 68 from [place] CAD (coronary artery disease) Myocardial infarction Hyperlipidemia Father , age 83, cause unknown; hx CAD, cerebral aneurysm CAD (coronary artery disease) Cerebral aneurysm Daughter Inappropriate sinus tachycardia Grandfather , Age 80, CAD CAD (coronary artery disease) Surgical History History of colonoscopy (~2011) History of tonsillectomy (~1964) History of vasectomy (~1993) Social History Smoking Status: Never smoker alcohol intake: current alcohol intake frequency: a few times a month substance use type: does not use caffeine: Yes Type: coffee Number of servings: 1 ROS Constitutional Constitutional: Denies chills, fever(s) or malaise Eyes Eyes: Denies blurry vision or change in vision ENT HEENT: Reports none Cardiovascular Cardiovascular: Denies chest pain or palpitations Respiratory/Chest Respiratory/Chest: Denies cough or shortness of breath with exertion Gastrointestinal Gastrointestinal: Denies abdominal pain, constipation or diarrhea Musculoskeletal Musculoskeletal: Denies back pain, joint stiffness or joint swelling Integumentary Integumentary: Denies dry skin, jaundice, lesions or rash Neurologic Neurologic: Denies confusion, syncope or weakness Psychiatric Psychiatric: Reports none; Denies anxiety or depression Endocrine Endocrinology: Denies excessive sweating, fatigue or flushing Hematologic/Lymphatic Hematologic/Lymphatic: Denies anemia, easy bleeding or easy bruising Vital Signs Vital Signs Vital Signs: 03/04/24 16:03 03/04/24 17:07 03/04/24 18:44 Temperature 97.8 F 98 F 97.4 F L Temperature Source Oral Oral Oral Pulse Rate 61 71 61 Respiratory Rate 16 16 15 Blood Pressure 156/87 H 148/81 H 159/85 H Blood Pressure Mean 110 103 109 Pulse Ox 100 98 99 Oxygen Delivery Method Room Air Room Air Room Air 03/04/24 19:00 03/04/24 19:56 Temperature 98.2 F 98.7 F Temperature Source Oral Pulse Rate 63 72 Respiratory Rate 16 16 Blood Pressure 127/64 H 135/73 H Blood Pressure Mean 85 93 Pulse Ox 98 98 Oxygen Delivery Method Room Air Weight Weight: 84.867 kg Body Mass Index (BMI) 26.8 Physical Exam Const alert and oriented x3 General Appearance: cooperative HEENT normocephalic and head/scalp atraumatic Eyes PERRL and EOMs intact bilaterally Neck supple, no JVD and no carotid bruits Resp normal respiratory effort, normal air movement and clear to auscultation bilaterally Cardio regular rate and no murmurs GI normal to inspection, nondistended, normoactive bowel sounds and soft to palpation Extremity normal capillary refill General Extremity: no tenderness to palpation of joints or extremities; Negative for edema Skin no rashes or lesions noted and no wounds General Skin Exam: no breakdown Neuro CN's II-XII intact bilaterally Psych affect normal Appearance: appropriate Results Lab / Micro Data 03/04/24 16:25 03/04/24 16:25 Labs: Laboratory Results - last 24 hr 03/04/24 16:25: WBC 9.6, RBC 4.18 L, Hgb 13.9, Hct 37.7 L, MCV 90.2, MCH 33.3 H, MCHC 36.9 H, RDW Std Deviation 40.4, RDW Coeff of Diomedes 12.3, Plt Count 184, MPV 10.8, Immature Gran % (Auto) 0.300, Neut % (Auto) 86.0 H, Lymph % (Auto) 7.5 L, [place] % (Auto) 5.9, Eos % (Auto) 0.1, Baso % (Auto) 0.2, Absolute Neuts (auto) 8.3 H, Absolute Lymphs (auto) 0.72 L, Nucleated RBC % 0, Sodium 140, Potassium 3.2 L, Chloride 107, Carbon Dioxide 27.0, Anion Gap 7, BUN 14, Creatinine 1.20, Estim Creat Clear Calc 62.52, Est GFR (MDRD) Af Amer 78, Est GFR (MDRD) Non-Af 64, BUN/Creatinine Ratio 11.7, Glucose 132 H, Calcium 9.2 03/04/24 17:30: Urine Color Yellow, Urine Clarity Clear, Urine pH 7.0, Ur Specific [place] 1.010, Urine Protein 15 H, Urine Glucose (UA) Normal, Urine Ketones Negative, Urine Occult Blood 250 H, Urine Nitrite Negative, Urine Bilirubin Negative, Urine Urobilinogen Normal, Ur Leukocyte Esterase Negative, Urine RBC 5-10 SEEN, Urine WBC 0 SEEN, Ur Squamous Epith Cells 0 SEEN, Urine Bacteria 0 SEEN, Urine Mucus 0 SEEN Assessment & Plan Assessment/Plan (1) Acute left flank pain: PLAN: admit for Pain control npo at midnight plan surgical intervention tomorrow. (2) Calculus of left ureter:
[2024-03-04 20:54] VITALS: BMI 26.0
[2024-03-04 21:00] VITALS: BP 158/74; PULSE 57; RESP 16; TEMP 36.4; O2SAT 98
[2024-03-04] MEDS: 0.9% Normal Saline (1000mL) 1,000 ML 50 ML IV (21:13)
[2024-03-04] MEDS: Potassium Chloride 10mEq/100mL 10 MEQ/100 ML IV.SOLN. 100 MEQ IV BOLUS ×2 (21:18→22:48)
[2024-03-04] MEDS: Latanoprost 0.005% 1 Bottle 1 DRP OPHTHALMIC (21:20)
[2024-03-04] MEDS: Atorvastatin Calcium 80 MG Tablet PO (21:20)
[2024-03-04] MEDS: Docusate Sodium 100 MG Capsule 200 MG PO (21:20)
[2024-03-04] MEDS: Ondansetron 4 MG/2 ML Vial IV (21:59)
[2024-03-04] MEDS: Morphine 2 MG/ML Syringe IV (21:59)
[2024-03-04] MEDS: Ketorolac 15 MG/ML Vial IV (22:45)
[2024-03-04] MEDS: Acetaminophen 325 MG Tablet 650 MG PO (23:29)
[2024-03-04] MEDS: oxyCODONE 5 MG Tablet PO (23:30)
[2024-03-05] VITALS (14 sets, daily range): BP systolic 122–145; BP diastolic 66–77; PULSE 53–75; RESP 14–16; TEMP 36.3–36.9; O2SAT 93–98; BMI 26.0
--- NOTE | 2024-03-05 07:08 | PCM.PN.GU ---
Subjective Subjective 64-year-old male came in with severe pain on the right side with a stone in the mid ureter plan to proceed with laser lithotripsy of the stone and stent placement on the right side. He did have a lot of pain with the stent last time we discussed the pluses and minuses of not using the stent understands without a stent he could have just as much severe pain with spasms without a stent I will leave it up to him if he wants a stent that I recommended for safety sake he should have a stent we talked about absolute indications for stent. We talked about the risks of the surgery including the risk of bleeding, infection, severe infection, risk that the stone may not be reachable by ureteroscope and possible that he may need more than 1 procedure possible that for stone fragment they get stuck in the ureter requiring a second procedure. We talked about the risk of stent pain or discomfort expected course after the surgery was also discussed with the patient probably plan to discharge him home today and see him next week for stent removal. Objective Data Objective Data Vital Signs: Vital Signs Temp Pulse Resp BP Pulse Ox O2 Del Method 97.9 F 53 L 14 122/74 H 98 Room Air 03/05/24 04:14 03/05/24 04:14 03/05/24 04:14 03/05/24 04:14 03/05/24 04:14 03/05/24 04:14 Oxygen Delivery Method Room Air Weight: 82.4 kg Body Mass Index (BMI) 26.0 Intake & Output: Intake and Output for Last 24 Hours 03/03/24 03/04/24 03/05/24 23:59 23:59 23:59 Intake Total 100 / 450 450 / 450 Output Total 700 / 700 Balance 100 / 150 -250 / -250 Lab / Micro Data 03/04/24 16:25 03/04/24 16:25 Labs: Laboratory Results - last 24 hr 03/04/24 16:25: WBC 9.6, RBC 4.18 L, Hgb 13.9, Hct 37.7 L, MCV 90.2, MCH 33.3 H, MCHC 36.9 H, RDW Std Deviation 40.4, RDW Coeff of Diomedes 12.3, Plt Count 184, MPV 10.8, Immature Gran % (Auto) 0.300, Neut % (Auto) 86.0 H, Lymph % (Auto) 7.5 L, [place] % (Auto) 5.9, Eos % (Auto) 0.1, Baso % (Auto) 0.2, Absolute Neuts (auto) 8.3 H, Absolute Lymphs (auto) 0.72 L, Nucleated RBC % 0, Sodium 140, Potassium 3.2 L, Chloride 107, Carbon Dioxide 27.0, Anion Gap 7, BUN 14, Creatinine 1.20, Estim Creat Clear Calc 62.52, Est GFR (MDRD) Af Amer 78, Est GFR (MDRD) Non-Af 64, BUN/Creatinine Ratio 11.7, Glucose 132 H, Calcium 9.2 03/04/24 17:30: Urine Color Yellow, Urine Clarity Clear, Urine pH 7.0, Ur Specific [place] 1.010, Urine Protein 15 H, Urine Glucose (UA) Normal, Urine Ketones Negative, Urine Occult Blood 250 H, Urine Nitrite Negative, Urine Bilirubin Negative, Urine Urobilinogen Normal, Ur Leukocyte Esterase Negative, Urine RBC 5-10 SEEN, Urine WBC 0 SEEN, Ur Squamous Epith Cells 0 SEEN, Urine Bacteria 0 SEEN, Urine Mucus 0 SEEN
[2024-03-05 07:48] LABS: Absolute Lymphocyte Count 1.03 X10^3/uL (0.83-4.51); Absolute Neutrophil Count 5.4 X10^3/uL (2.0-7.7); Basophil# 0.02 X10^3/uL; Basophil% 0.3 % (0-1); Eosinophil# 0.04 X10^3/uL; Eosinophils% 0.6 % (0-5); Hematocrit 37.3 % (40-54); Lymphocyte # 1.03 X10^3/ul (0.83-4.51); Lymphocyte % 14.3 % (19-41); Mean Corp Hgb Conc 34.9 g/dL (32-36); Mean Corpuscular Hgb 31.9 pg (27.0-32.0); Mean Corpuscular Volume 91.4 fL (80-94); Mean Platelet Vol. 11.2 fl (6.2-12.0); Monocyte# 0.67 X10^3/uL; Monocyte% 9.3 % (0-10); NRBC Flagged by Analyzer 0 % (0-5); Neutrophil # 5.41 X10^3/uL (2.7-7.7); Neutrophil % 75.2 % (47-70); Platelet Count 159 K/mm3 (150-450); RBC Distribution Width CV 12.5 % (11.6-14.6); RBC Distribution Width SD 41.6 fl (35.1-43.9); Red Blood Count 4.08 M/mm3 (4.6-6.2); White Blood Count 7.2 K/mm3 (4.4-11.0)
[2024-03-05 08:02] LABS: Anion Gap 8 (5-15); BUN 12 mg/dL (7-18); BUN/Creat Ratio 12.4 RATIO (10-20); Calcium,Total 8.8 mg/dL (8.5-10.1); Chloride 108 mmol/L (98-107); Creatinine, Serum 0.97 mg/dL (0.70-1.30); EST Glomerular Filtration Rate 82 mL/min (>60); Est Glom Filt Rate - Afr Amer 100 mL/min (>60); Estimated Creatinine Clearance 77.35 ml/min; Glucose 109 mg/dL (74-106); Potassium 3.9 mmol/L (3.5-5.1); Sodium Level 142 mmol/L (136-145)
[2024-03-05] MEDS: Morphine 2 MG/ML Syringe IV (09:42)
[2024-03-05] MEDS: Ketorolac 15 MG/ML Vial IV (10:03)
--- NOTE | 2024-03-05 13:45 | PCM.PRE.AN2 ---
ASA Classification* ASA Classification ASA Classification: 2 Assessment & Plan Anesthesia* Anesthesia Assessment Anesthesia Assessment: Discussed sedation and/or anesthesia options, risks, benefits, and alternatives with patient/parents/legal guardian/POA. Questions invited. The patient/parents/legal guardian/POA seems to understand and agrees to proceed with anesthesia plan. Reviewed the physical assessment, medical history, allergy history and patient home medications list prior to surgery/procedure/anesthetic and documented any changes. Performed airway and anesthesia risk assessments. Anesthesia Type Anesthesia Type: General History Source History Obtained from:: Patient and Chart Anesthesia Focused Assessment* Temperature: 98.3 F Pulse Rate: 55 Blood Pressure: 143/67 Respiratory Rate: 14 Pulse Ox: 97 Oxygen Delivery Method: Room Air Airway Assessment Mouth opens: >3 cm Mallampati Score: II Teeth Condition: Intact Focused Labs Anesthesia Preop lab: CBC WBC 7.2 K/mm3 (4.4-11.0) 03/05/24 07:37 RBC 4.08 M/mm3 (4.6-6.2) L 03/05/24 07:37 Hgb 13.0 g/dL (13.0-16.5) 03/05/24 07:37 Hct 37.3 % (40-54) L 03/05/24 07:37 Plt Count 159 K/mm3 (150-450) 03/05/24 07:37 CHEMISTRY Potassium 3.9 mmol/L (3.5-5.1) 03/05/24 07:37 Sodium 142 mmol/L (136-145) 03/05/24 07:37 BUN 12 mg/dL (7-18) 03/05/24 07:37 Creatinine 0.97 mg/dL (0.70-1.30) 03/05/24 07:37 Glucose 109 mg/dL (74-106) H 03/05/24 07:37 COAG Pre-Assessment Diagnosis/Proposed Procedure Planned Operative Procedure(s): Right Ureteroscopy/ Laser Stone/ Right Ureteral Stone Anesthesia History Anesthesia History - mental health aide: Anesthesia History - mental health aide Hx Hospitalization Any Problems With Anesthesia Yes: migraine acute angler 03/05/24 10:14 glaucoma episode Cholinesterase deficiency No 03/05/24 10:14 You/Your Family Experience No 03/05/24 10:14 fever (hyperthermia) with Relationship Recent Exposure to Contagious No 03/05/24 10:14 Disease Does patient have nerve No 03/05/24 10:14 stimulator Patient instructed to have No 03/05/24 10:14 device shut off --Does patient have Pacemaker No 03/05/24 10:14 or ICD? When Was Last Pacemaker Check QUESTION #4 FULL TEXT: You/Your Family Experience fever (hyperthermia) with Anesthesia Last Oral Intake Last Oral intake: Last Oral Intake NPO since 00:00 03/05/24 10:14 Meds taken in AM with sips of No 03/05/24 10:14 water? Meds patient instructed to take am of surgery PONV PONV - mental health aide: PONV - mental health aide Female HX of Motion Sickness HX of N/V After Surgery Non-Smoker Duration of Surgery greater than 60 minutes Number of Risk Factors PONV Score Height & Weight Height & Weight: Anesthesia: Height & Weight Height 5 ft 10 in 03/05/24 10:14 Weight: 82.4 kg 03/05/24 10:14 Body Mass Index (BMI) 26.0 03/05/24 10:14 Respiratory Assessment Respiratory Assessment - mental health aide: Respiratory Tract Infection Hx - mental health aide Hx Respiratory Tract Infection Yes: norovirus sunday03/05/24 10:14 STOP Sleep Apnea STOP Sleep Apnea - mental health aide: STOP Sleep Apnea - mental health aide Hx Hypertension No 03/04/24 20:57 Hx Sleep Apnea No 03/04/24 20:57 CPAP BIPAP Do you snore loudly (louder Yes 03/04/24 20:57 than talking or can be heard Do you often feel tired/ No 03/04/24 20:57 fatigued/ sleepy during daytime? Has anyone observed you stop No 03/04/24 20:57 breathing during sleep? STOP Results Negative 03/04/24 20:57 QUESTION #5 FULL TEXT : Do you snore loudly (louder than talking or can be heard through closed doors)? Tobacco Use History Tobacco Use History - mental health aide: Tobacco Use History - mental health aide Tobacco Use Smoking Status Never smoker 03/04/24 20:57 Hx Tobacco Use No 03/04/24 20:57 Years Smoking Packs Smoked per Day Smoking Cessation Date was within the last 15 years Hx Smoking Cessation Date Hx Smoking Cessation Counseling Hematologic Medial History Hematologic Hx - mental health aide: Hematologic Medical Hx - trust and estates attorney Hx of Blood Transfusion No 03/04/24 20:57 Hx of Transfusion in last 3 No 03/04/24 20:57 Months Date of Last Transfusion (if within last 3 months) Ever experience any problems No 03/04/24 20:57 with transfusion(s)? Specify any problems Hx of Preganancy in last 3 N/A 03/04/24 20:57 Months Nurse Filling Out Transfusion DREDICK 03/04/24 20:57 & Questions: Date: 03/04/24 03/04/24 20:57 Time: 20:57 03/04/24 20:57 Patient unable to answer at this time (ie. confused, unrespo /Reproduction History /Reproductive History - mental health aide: /Reproductive Hx- mental health aide Hx Now No 03/05/24 10:14 Gestational Age (in weeks): EDC: Hx Hx Para Hx Section SAB No 03/05/24 10:14 Active Medications Active Medications: Current Medications Generic Name Dose Route Start Last Admin Trade Name Freq PRN Reason Stop Dose Admin Acetaminophen 650 mg 03/04/24 20:20 03/04/24 23:29 Acetaminophen 325 Mg Tablet PO 650 mg Q6H PRN PRN Administration Pain Score 1-10 Al Hydroxide/Mg Hydroxide 30 ml 03/04/24 20:20 Mag Hydrox/Al Hydrox/Simeth 30 Ml Udc PO Q4H PRN PRN HEARTBURN Atorvastatin Calcium 80 mg 03/04/24 22:00 03/04/24 21:20 Atorvastatin Calcium 80 Mg Tablet PO 80 mg QHS ALEX Administration Docusate Sodium 200 mg 03/04/24 22:00 03/05/24 11:18 Docusate Sodium 100 Mg Capsule PO Not Given BID ALEX Sodium Chloride 1,000 mls @ 50 mls/hr 03/04/24 20:20 03/04/24 21:13 IV 03/07/24 08:19 50 mls/hr .Q20H ALEX Administration Cefazolin Sodium 1 gm in 50 mls @ 150 mls/hr 03/06/24 14:00 IV 03/06/24 14:19 PREOP ONE Sodium Chloride 100 mls @ 15 mls/hr 03/04/24 20:49 IV .Q6H40M PRN Saline Flush Sodium Chloride 100 mls @ 15 mls/hr 03/04/24 20:49 IV .Q6H40M PRN Additional IVPB Infusion Ketorolac Tromethamine 15 mg 03/04/24 20:20 03/05/24 10:03 Ketorolac 15 Mg/Ml Vial IV 03/06/24 20:22 15 mg Q6H PRN PRN Administration Pain 1-10 Latanoprost 1 drp 03/04/24 22:00 03/04/24 21:20 Latanoprost 0.005% 1 Bottle OPHTHALMIC 1 drp QHS ALEX Administration Morphine Sulfate 2 mg 03/04/24 20:20 03/05/24 09:42 Morphine 2 Mg/Ml Syringe IV 2 mg Q2H PRN Administration Pain Score 6-10 Ondansetron HCl 4 mg 03/04/24 20:20 03/04/24 21:59 Ondansetron 4 Mg/2 Ml Vial IV 4 mg Q8H PRN Administration NAUSEA/VOMITING Oxycodone HCl 5 - 10 mg 03/04/24 20:20 03/04/24 23:30 Oxycodone 5 Mg Tablet PO 10 mg Q6H PRN PRN Administration Pain Score 4-10 Sodium Chloride 10 - 40 ml 03/04/24 20:49 0.9% Saline Lock 10 Ml Syringe IV UD PRN SALINE FLUSH PFSH Medical History Acute angle-closure glaucoma Migraine Atherosclerotic heart disease of [place] coronary artery without angina pectoris Hyperlipidemia Blood glucose elevated Shortness of breath Home Medications ?Medication ?Instructions ?Recorded ?Last Taken ?Type multivitamin 1 tab PO DAILY supplement 06/03/18 Unknown History atorvastatin 80 mg tablet 80 mg PO QHS hld #90 tabs 03/29/23 Unknown Rx latanoprost 0.005 % eye drops 1 drp ophthalmic (eye) QHS 03/04/24 Unknown History Allergy/AdvReac Type Severity Reaction Status Date / Time No Known Allergies Allergy Verified 03/04/24 16:04 Family History Mother , Age 68 from [place] CAD (coronary artery disease) Myocardial infarction Hyperlipidemia Father , age 83, cause unknown; hx CAD, cerebral aneurysm CAD (coronary artery disease) Cerebral aneurysm Daughter Inappropriate sinus tachycardia Grandfather , Age 80, CAD CAD (coronary artery disease) Surgical History History of colonoscopy (~2011) History of tonsillectomy (~1964) History of vasectomy (~1993) Social History Smoking Status: Never smoker alcohol intake: current alcohol intake frequency: a few times a month substance use type: does not use caffeine: Yes Type: coffee Number of servings: 1 Review of Systems (Anesthesia) ROS Narrative System reviewed and no additional complaints, except as documented. Physical Exam Const alert and oriented x3 Resp normal respiratory effort and normal air movement Cardio regular rate and regular rhythm Neuro oriented x3 and moves all extremities
[2024-03-05] MEDS: 0.9% Normal Saline (1000mL) 1,000 ML 15 ML IV (13:46)
--- NOTE | 2024-03-05 14:16 | NURSING ---
All documentation by student nurse Parul Sanchez reviewed by nursing unit coordinator Angelina Villalobos BSN, RN.
[2024-03-05] MEDS: Cefazolin 1 GM/50 ML BAG IV (14:55)
--- NOTE | 2024-03-05 15:28 | DCINST_ITS ---
Discharge Instructions Diet Discharge Diet: No restrictions and Light diet - advance as tolerated DC O2, CPAP, BIPAP needs Home O2 Discharge instructions: No Dressing / Incision Discharge Activity: No Restrictions and May Not Drive (id takiong pain meds or in pain) Return to work on:: 03/12/24 May shower in (days): 1 Dressing / Incision Call your doctor if you observe: Fever of 101 or Higher and Uncontrolled pain Follow Up Care Please Follow Up With: jose manuel When: call for appt. Test Results: Test results from this visit will be discussed in further detail at your follow- up appointment, if applicable. Discharge Plan Admission Admit Date/Time: 03/04/24 20:19 Primary Reason for Your Visit: laser stone Attending Provider: Jesus Lawrence Primary Care Provider: Freedom Grady Discharge Orders/Prescriptions Prescriptions: New oxycodone 5 mg tablet 5 mg PO Q6H PRN (Reason: pain) 3 Days Qty: 10 0RF cephalexin 500 mg capsule 500 mg PO TID Qty: 15 0RF Continued multivitamin tablet 1 tab PO DAILY latanoprost 0.005 % drops 1 drp ophthalmic (eye) QHS atorvastatin 80 mg tablet 80 mg PO QHS Qty: 90 3RF Referrals / Follow Up: Jesus Lawrence MD [Med Staff - Active Staff] - Freedom Grady DO [Primary Care Provider] - Disposition Disposition (needs filled in before D/C Order can be placed): Home, Self Care
--- NOTE | 2024-03-05 15:29 | OP.PCM_ITS ---
Operative Report (Standard) Operative Information Date of Procedure: 03/05/24 Pre-Operative Diagnosis: Right ureteral calculi Post-Operative Diagnosis: The same Surgery/Procedure Performed: Cystoscopy, balloon dilation of the right ureter, right ureteroscopy laser lithotripsy of stone and right stent placement title i paraprofessional: No Type of Anesthesia: General RN Documented Start/Stop Times: Operation Date: 03/05/24 14:25 Case Time Into Pre-Op 03/05/24 13:31 Out of Pre-Op 03/05/24 14:38 Anesthesia Start 03/05/24 14:43 Into Room 03/05/24 14:43 Procedure Start 03/05/24 14:57 Procedure End 03/05/24 15:23 Procedure Start Time: 14:57 Procedure Stop Time: 15:23 Select all DRAINS/GRAFTS/IMPLANTS that apply: Drains Drain details: Right stent Estimated Blood Loss: None Specimen collected: No Description of surgery: This is a 64-year-old male with a large stone in the mid right ureter has been having severe pain off-and-on today organ to proceed with laser lithotripsy of the stone he understands there is a risk of bleeding, infection, severe infection sepsis with treatment of kidney stones he also understands that is probably best off that we use a stent but he may have stent discomfort severe pain with the stent also understands possible he may need multiple procedures. Also understands that the stent will need to be removed in about 5 to 7 days after the procedure in the office . Patient was taken back to the operating room after smooth induction of anesthesia he was placed in dorsolithotomy position. I went into the bladder with a 21 Polish rigid cystourethroscope the entire length of the urethra was normal the sphincter was intact the verumontanum was normal the prostate was enlarged he does have a large median lobe I then was able to cannulate the right ureteral orifice with a Glidewire 0.038 Glidewire and a balloon dilator I then balloon dilated the distal ureter with a 12 Polish balloon dilator left the wire in place and then next to the wire went in with a flexible 7.5 Olympus flexible ureteroscope was able to get into the ureter worked my way up the ureter and encountered a large 8 mm stone in the ureter I then used a 150 ?m laser fiber it was a thulium laser the stone was lasered completely into small pieces as it broke up then some of the pieces migrated up into the kidney I chased the stones fragments up into the kidney and then finish lasering the stones in the kidney into tiny little pieces once the stone was completely lasered completely there is only tiny little fragments left in the kidney no major fragments left along the course of the ureter I then worked my way down the ureter no injury trauma or perforation was noted along the ureter nice and open ureter. Then we backloa ded over the wire with the cystoscope I placed a stent it was a 6 Polish by 26 cm stent put up into the kidney the stent coiled in the kidney and bladder in good position we drained the bladder and the patient's anesthetic was reversed taken back to the PACU in good condition he is currently admitted to the hospital as long as he is doing well and go home later today or we have to keep him overnight for pain control as fine and then next week will have him set up to see me for cystoscopy stent removal in the office. Surgical Findings: Stone in the mid right ureter lasered completely into small pieces Complications Complications: No Admit VTE Documentation VTE Present on Admission: No VTE Mechan Device Prophylaxis: SCD's VTE Pharm Prophylaxis ordered?: No
--- NOTE | 2024-03-05 15:35 | PCM.POST.ANE ---
Anesthesia: Postop Eval I Current Vital Signs Temperature: 97.8 F Pulse Rate: 72 Blood Pressure: 126/70 Respiratory Rate: 16 Pulse Ox: 98 Oxygen Delivery Method: Room Air Assessment Airway patent: Yes Spontaneous unlabored respirations: Yes Mental status: Asleep nausea: No Vomiting: No Anesthesia Complication: No Fluid Hydration Crystalloid volume administer (ml): 400 Total IV fluid infused: 400 Progress Note Anesthesia document: Postop Eval 1 completed: Yes
[2024-03-05] MEDS: 0.9% Normal Saline (1000mL) 1,000 ML 50 ML IV (16:24)
--- NOTE | 2024-03-05 16:29 | POSTOPAN2_ITS ---
Anesthesia Postop Eval I Sum Postop Eval Completion status Anesthesia document: Postop Eval 1 completed: Yes Anesthesia Postop Eval I Summary Anesthesia Postop Eval I Summary: Anesthesia Postop Eval I: Assessment Summary Airway patent Yes 03/05/24 15:36 [email or web address] Spontaneous unlabored Yes 03/05/24 15:36 [email or web address] [email or web address] respirations Mental status Asleep 03/05/24 15:36 [email or web address] nausea No 03/05/24 15:36 [email or web address] [email or web address] Vomiting No 03/05/24 15:36 SHIELD [email or web address] Anesthesia Postop Eval I: Fluid Summary Crystalloid volume administer 400 03/05/24 15:36 [email or web address] [email or web address] (ml) Colloids volume administered ( ml) Blood Product volume administered (ml) Total IV fluid infused 400 03/05/24 15:36 [email or web address] [email or web address] Anesthesia Postop Eval I: Summary Notes Anesthesia Complication No 03/05/24 15:36 [email or web address] [email or web address] Anesthesia Complication Comment: Post-operative progress note Anesthesia: Postop Eval II Evaluation Mental status: Awake and Calm Pain Level: 0 nausea: No Vomiting: No Complications Anesthesia Complication: No
--- NOTE | 2024-03-05 16:29 | PCM.POSTANE2 ---
Anesthesia Postop Eval I Sum Postop Eval Completion status Anesthesia document: Postop Eval 1 completed: Yes Anesthesia Postop Eval I Summary Anesthesia Postop Eval I Summary: Anesthesia Postop Eval I: Assessment Summary Airway patent Yes 03/05/24 15:36 [email or web address] Spontaneous unlabored Yes 03/05/24 15:36 [email or web address] respirations Mental status Asleep 03/05/24 15:36 [email or web address] nausea No 03/05/24 15:36 DATA [email or web address] Vomiting No 03/05/24 15:36 DATA [email or web address] Anesthesia Postop Eval I: Fluid Summary Crystalloid volume administer 400 03/05/24 15:36 DATA [email or web address] (ml) Colloids volume administered ( ml) Blood Product volume administered (ml) Total IV fluid infused 400 03/05/24 15:36 DATA [email or web address] Anesthesia Postop Eval I: Summary Notes Anesthesia Complication No 03/05/24 15:36 DATA [email or web address] Anesthesia Complication Comment: Post-operative progress note Anesthesia: Postop Eval II Evaluation Mental status: Awake and Calm Pain Level: 0 nausea: No Vomiting: No Complications Anesthesia Complication: No
== END 2024-03-05 18:44 | disposition home or self-care (01) ==
LOC: ED 17:47 → MS3 20:31
PROVIDERS: Admitting Provider Urology; Emergency Provider Emergency Medicine; Visit Provider Urology
PROC: 0TJ98ZZ Inspection of Ureter, Via Natural or Artificial Opening Endoscopic (ICD-10-PCS; CPT 52352; principal; 2024-03-05 14:15)
DX: N20.1 Calculus of ureter (principal); I25.10 Atherosclerotic heart disease of native coronary artery without angina pectoris; E78.5 Hyperlipidemia, unspecified; Z79.899 Other long term (current) drug therapy
CPT/HCPCS: 52356; 36415; 80048; 81001; 85025; 94668; 96365; 96366; 96375; 96376; 99221; 99284; A4216; C1769; C2617; G0378; J2405

== ENCOUNTER → 2024-03-04 | Outpatient (CLI) | payer OTHER, SELFPAY ==
--- NOTE | 2024-03-04 11:38 | RAD_ITS ---
STUDY: X-RAY - ABDOMEN/PELVIS REASON FOR EXAM: Male, 64 years old. KUB, CALCULUS OF KIDNEY TECHNIQUE: Single AP view of the abdomen / pelvis. COMPARISON: None. FINDINGS: Normal visualized lung bases. There is an unremarkable bowel gas pattern. 3 x 7 mm right mid ureterolith. Surgical clips noted within the scrotum bilaterally. Phleboliths noted in the right hemiscrotum. The visualized liver, spleen and kidneys are grossly normal in size and morphology. Normal soft tissue structures. Normal visualized osseous structures. RAD/Abdomen Single View IMPRESSION: 7 mm mid ureterolith on the right Electronically Signed: Altaf Martinez MD at 0:23 EST ,
== END | disposition home or self-care (01) ==
PROVIDERS: Referring Provider Urology; Visit Provider Urology
DX: N20.0 Calculus of kidney (principal)
CPT/HCPCS: 74018

== ENCOUNTER → 2024-04-24 | Outpatient (CLI) | payer OTHER, SELFPAY ==
[2024-04-24 12:10] LABS: ALB/GLOB Ratio 1.5 RATIO (0.9-2.4); AST(SGOT) 25 U/L (<=37); Alanine Aminotransfer ALT/SGPT 21 U/L (<=46); Albumin, Serum 4.2 g/dL (3.4-4.8); Alkaline Phosphatase 69 U/L (40-129); Anion Gap 12 (5-15); BUN 14 mg/dL (4-19); BUN/Creat Ratio 15.9 RATIO (10-20); Calcium,Total 9.2 mg/dL (7.6-11.0); Carbon Dioxide 23.7 mmol/L (21.0-32.0); Chloride 104 mmol/L (98-108); Creatinine, Serum 0.89 mg/dL (0.70-1.20); EST Glomerular Filtration Rate 94 (>60); Globulin 2.9 g/dL (2.2-4.2); Glucose 99 mg/dL (70-99); Magnesium 2.1 mg/dL (1.5-2.2); Phosphorus 2.8 mg/dL (2.7-4.5); Potassium 3.9 mmol/L (3.3-5.1); Protein, Total 7.1 g/dL (5.9-8.4); Sodium Level 139 mmol/L (133-145); Total Bilirubin 0.55 mg/dL (0.00-1.30)
== END | disposition home or self-care (01) ==
PROVIDERS: Referring Provider Urology; Visit Provider Urology
DX: N20.0 Calculus of kidney (principal)
CPT/HCPCS: 36415; 80053; 83735; 84100

== ENCOUNTER → 2024-04-28 | Outpatient (CLI) | payer OTHER, SELFPAY ==
[2024-04-29 11:08] LABS: Uric Acid, 24Ur 755.9 mg/24 hr (182.4-936.8); Uric Acid, Ur 68.1 mg/dL (Not Estab.)
[2024-04-29 14:22] LABS: (24 HR) Urine Calcium 297.5 mg/24 HR (42.0-353.0); 24HR UR TOTAL VOLUME 1110 ml; 24Hr.Lytes Total Volume 1110 mL; Calcium Urine pH Range 2; Sodium 24 HR UR 149 mmol/24h (40-220); Urine Calcium (Random) 26.8 mg/dL (Not Estab.); Urine Sodium 134 mmol/L (Not Establ.)
[2024-04-29 14:23] LABS: Urine Chloride 126 mmol/L (Not Establ.); Urine Chloride / 24 Hours 140 mmol/24h (110-250); Urine Potassium/ 24 Hours 62.2 mmol/24h (25-125)
== END | disposition home or self-care (01) ==
LOC: LABSPEC 12:36
PROVIDERS: Referring Provider Urology; Visit Provider Urology
DX: N20.0 Calculus of kidney (principal)
CPT/HCPCS: 82340; 82436; 84133; 84300; 84560